=== PATIENT | male | born 1935 | race Caucasian/White ===

== ENCOUNTER → 2018-11-26 | Outpatient (CLI) | payer MEDICARE, OTHER ==
[2018-11-26 07:42] LABS: POTASSIUM 4.4 mmol/L (3.5-5.1)
== END ==
LOC: M.LAB 05:00
PROVIDERS: Student in an Organized Health Care Education/Training Program
DX: E11.9 Type 2 diabetes mellitus without complications (principal); E87.6 Hypokalemia

== ENCOUNTER 2020-10-29 12:35 | Observation (INO) | payer MEDICARE, OTHER ==
[~2020-10-29] VITALS: Ht 177.8 cm; Wt 98.2 kg
[2020-10-29 12:44] VITALS: BP 210/90
[2020-10-29 13:15] LABS: ABSOLUTE LYMPHOCYTES 1.7 thou/uL (0.8-5.3); ABSOLUTE MONOCYTES 0.6 thou/uL (0.0-1.2); ABSOLUTE NEUTROPHILS 6.8 thou/uL (1.6-8.1); BASOPHILS 0.3 %; EOSINOPHILS 0.2 %; HEMATOCRIT 43.4 % (42.0-52.0); HEMOGLOBIN 15.1 gm/dL (14.0-18.0); LYMPHOCYTES 18.4 %; MCH 32.1 pg (26.0-34.0); MCHC 34.9 g/dL (28.0-37.0); MCV 92.2 fL (80.0-100.0); MONOCYTES 6.6 %; MPV 6.7 fl. (7.2-11.1); NUCLEATED RBCS 0 /100WBC; PLATELET COUNT* 311 thou/uL (150-400); POLYS 74.5 %; RBC 4.71 mil/uL (4.50-6.00); RDW-CV 12.9 % (10.5-14.5); WBC 9.1 thou/uL (4.0-11.0)
[2020-10-29 13:27] LABS: CALCIUM 9.5 mg/dL (8.5-10.1); CREATININE 0.8 mg/dL (0.6-1.3); POTASSIUM 3.6 mmol/L (3.5-5.1)
[2020-10-29 13:31] LABS: ALBUMIN 4.2 g/dL (3.4-5.0); TOTAL BILIRUBIN 0.7 mg/dL (<0.1-1.0); TOTAL PROTEIN 7.5 g/dL (6.4-8.2)
[2020-10-29] MEDS ORDERED: GABAPENTIN100 MG PO (13:45)
[2020-10-29] MEDS ORDERED: METFORMIN HCL500 M3 PO (13:45)
[2020-10-29] MEDS ORDERED: FENOFIBRATE150 MG PO (13:45)
[2020-10-29] MEDS ORDERED: TOPROL XL25 MG PO (13:46)
--- NOTE | 2020-10-29 16:55 | EKG ---
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: UMANG : 1935 Requested By: Ernesto Lazo Order Number: [id number] MD: Parvez Echols Measurements Intervals [place] Rate: 57 P: 16 MT: 138 QRS: 35 QRSD: 100 T: 42 QT: 413 QTc: 402 Interpretive Statements Sinus rhythm Probable left ventricular hypertrophy No previous ECG available for comparison Electronically Signed On 10-29-2020 16:55:36 CDT by Parvez Echols [email or web address] <ELECTRONICALLY SIGNED> By: Parvez Echols MD, [facility] 10/29/20 1655 1249 1249 Parvez Echols MD, [facility] /EPI
[2020-10-29 18:30] VITALS: BP 162/76
[2020-10-29 19:43] VITALS: BP 146/59
[2020-10-29 20:00] VITALS: BP 118/53
[2020-10-29] MEDS ORDERED: LISINOPRIL20 MG PO (22:17)
[2020-10-29 23:58] VITALS: BP 109/52
[2020-10-30 04:02] VITALS: BP 108/42
[2020-10-30 04:42] LABS: HEMATOCRIT 41.8 % (42.0-52.0); HEMOGLOBIN 14.5 gm/dL (14.0-18.0); MCH 32.1 pg (26.0-34.0); MCHC 34.6 g/dL (28.0-37.0); MCV 92.6 fL (80.0-100.0); MPV 6.9 fl. (7.2-11.1); RBC 4.51 mil/uL (4.50-6.00); RDW-CV 12.9 % (10.5-14.5); WBC 9.5 thou/uL (4.0-11.0)
[2020-10-30 05:01] LABS: CALCIUM 9.5 mg/dL (8.5-10.1); POTASSIUM 4.3 mmol/L (3.5-5.1)
[2020-10-30 09:10] VITALS: BP 133/58
[2020-10-30 11:57] VITALS: BP 130/54
[2020-10-30 14:19] VITALS: BP 130/54
[2020-10-30 15:04] VITALS: BP 130/54
--- NOTE | 2020-10-30 15:05 | NUR ---
PATIENT HAS REMAINED A&OX4, PLEASANT AND COOPERATIVE WITH CARES THIS SHIFT. PATIENT IS TO FOLLOW UP WITH CARDIOLOGY OUTPATIENT. HAS DENIED ANY CHEST PAIN AND BP BETTER THAN AT ADMISSION. PATIENT GIVEN DISCHARGE INSTRUCTIONS, NO CHANGES TO HOME MEDICATION. IV REMOVED. PATIENT DENIES PAIN/QUESTIONS/CONCERNS PRIOR TO DISCHARGE. PATIENT LEFT UNIT VIA W/C WITH PERSONAL BELONGINGS, ACCOMPANIED BY NURSING STAFF AND SON AT APPROX. 1455.
[2020-10-31 02:05] LABS: GLYCOHEMOGLOBIN (HGB A1C) 6.6 % (4.8-5.6)
== END 2020-10-30 14:55 | disposition home or self-care (01) ==
LOC: M.ERS 12:35 → M.TBA-ER 14:36 → M.2W 19:43
PROVIDERS: Emergency Medicine; ADMIT Internal Medicine; ATTEND Internal Medicine
DX: I16.0 Hypertensive urgency (principal); R07.89 Other chest pain; Z20.822 Contact with and (suspected) exposure to COVID-19; E11.40 Type 2 diabetes mellitus with diabetic neuropathy, unspecified; R42 Dizziness and giddiness; I10 Essential (primary) hypertension; E66.9 Obesity, unspecified; Z68.31 Body mass index [BMI] 31.0-31.9, adult

== ENCOUNTER 2020-11-16 21:41 | Observation (INO) | payer MEDICARE, OTHER ==
[~2020-11-16] VITALS: Ht 175.3 cm; Wt 98.4 kg
--- NOTE | ~2020-11-16 | EMS ---
[address] [address] EMS Patient Care Report Name: LILI WATSON Room: [address] Tung Freed#: [id number] Admission: 11/17/20 Attend Phys: Carlee Aguirre Discharge: Date of : 39 Report #: [id number] THIS REPORT FOR: //name// Report Transmitted: 11/17/2020 01:02 EMS Care Summary KENDELL JEAN Incident [id number] @ 11/16/2020 21:05 Incident Location [address] [place] [address] Patient Lili Watson Male, 85 Years 1935 Patient Address [address] [place] [address] Patient History Hypertension (HTN),Hyperlipidemia,Endocrine Condition - Other,Polyneuropathy, unspecified, Patient Allergies No known allergies, Patient Medications Gabapentin, Hydrochlorothiazide / Lisinopril, Metoprolol, Metformin, Fenofibrate, Chief Complaint Chest Pain Disposition Transported No Lights/[place] Dispatch Reason Chest Pain (Non-Traumatic) Transported To [facility] Narrative [facility] dispatched for chest pain. Arrived on scene of a single-family home. Patient is found seated in a recliner in the livingroom with IFD and family at [address] [address] EMS Patient Care Report Name: LILI WATSON Room: [address] Aleida.#: [id number] Admission: 11/17/20 Attend Phys: Carlee Aguirre Discharge: Date of : 39 Report #: [id number] his side. Patient is alert, oriented with no immediate life-threats noted. Patient states he had sudden onset of chest pain with high blood pressure. It does not radiate. The pain is a pressure substernal and constant. Patient denies shortness of breath and nausea. Patient does admit to dizziness. Patient states he was sitting in his chair watching the game. patient reports that he was seen two weeks ago for the same complaint. Pain scale as documented. 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 12-lead obtained at patient side. Patient did report resolution of his pain during assessment. Patient agrees to be transported to [place] for further evaluation. Patient was able to ambulate to [facility] without incident. Patient sat in a position of comfort, was secured via safety straps plus side rails, taken to ambulance and loaded without incident. Vitals, BGL and repeat 12-lead obtained. IV access obtained. Patient had no further complaints during transport and states that he does feel better and that he was a little anxious. Patient is noted to be hypertensive. He states he has been taking his medications as prescribed. Patient states again that he feels better and that the pain is minimal. Patient remained monitored throughout transport with supportive care provided. At destination, signature obtained and monitoring removed. Patient was unloaded and taken to room 17. Patient was lowered, unsecured and able to self-transfer from cot to facility bed without incident. Report to RN and physician. Signature obtained from RN. Care transferred and call cleared. Initial Vitals @21:09Pain: 08/25, @21:38Pain: 08/25, @21:19SpO2: 96, @21:24SpO2: 94, @21:32SpO2: 96, @21:35SpO2: 95, @21:11 @21:16 @21:20P: 62,R: 16,BP: 170/84, @21:35P: 62,R: 14,BP: 207/89, @21:38P: 60,R: 16,BP: 202/74, @21:20GCS: 15, @21:35GCS: 15, @21:38GCS: 15, @21:09 Assessments @21:09MENTAL:SKIN:HEENT:LUNG SOUNDS:ABDOMEN:PELVIS//GI:EXTREMITIES:PULSE:NEURO: Impression [place] [address] EMS Patient Care Report Name: LILI WATSON Room: [address] M.R.#: [id number] Admission: 11/17/20 Attend Phys: Carlee Aguirre Discharge: Date of : 39 Report #: [id number] Procedures @21:24 cc () Site: Other Peripheral (Not Listed)Response: UnchangedSucceeded@21:1112-Lead ECGResponse: UnchangedSucceeded@21:1612-Lead ECGResponse: UnchangedSucceeded Timeline 20:39,Call Received 21:04,Dispatch Notified 21:04,Psap Call 21:05,Dispatched 21:05,En Route 21:08,On Scene 21:09,At Patient 21:09,BP: / M,PULSE: ,RR: R,SPO2: Ox,ETCO2: ,BG: ,PAIN: 3,GCS: , 21:09,BP: / M,PULSE: ,RR: R,SPO2: Ox,ETCO2: ,BG: ,PAIN: ,GCS: , 21:11,12-Lead ECG,Response: UnchangedSucceeded, 21:11,BP: / M,PULSE: ,RR: R,SPO2: Ox,ETCO2: ,BG: ,PAIN: ,GCS: , 21:16,12-Lead ECG,Response: UnchangedSucceeded, 21:16,BP: / M,PULSE: ,RR: R,SPO2: Ox,ETCO2: ,BG: ,PAIN: ,GCS: , 21:19,BP: / M,PULSE: ,RR: R,SPO2: 96 Ox,ETCO2: ,BG: ,PAIN: ,GCS: , 21:19,Depart Scene 21:20,BP: 170/84 M,PULSE: 62,RR: 16 R,SPO2: Ox,ETCO2: ,BG: ,PAIN: ,GCS: , 21:20,BP: / M,PULSE: ,RR: R,SPO2: Ox,ETCO2: ,BG: ,PAIN: ,GCS: 15, 21:24, cc Site: Other Peripheral (Not Listed),Response: UnchangedSucceeded, 21:24,BP: / M,PULSE: ,RR: R,SPO2: 94 Ox,ETCO2: ,BG: ,PAIN: ,GCS: , 21:32,BP: / M,PULSE: ,RR: R,SPO2: 96 Ox,ETCO2: ,BG: ,PAIN: ,GCS: , 21:35,BP: / M,PULSE: ,RR: R,SPO2: 95 Ox,ETCO2: ,BG: ,PAIN: ,GCS: , 21:35,BP: 207/89 M,PULSE: 62,RR: 14 R,SPO2: Ox,ETCO2: ,BG: ,PAIN: ,GCS: , 21:35,BP: / M,PULSE: ,RR: R,SPO2: Ox,ETCO2: ,BG: ,PAIN: ,GCS: 15, 21:38,BP: / M,PULSE: ,RR: R,SPO2: Ox,ETCO2: ,BG: ,PAIN: 3,GCS: , 21:38,BP: 202/74 M,PULSE: 60,RR: 16 R,SPO2: Ox,ETCO2: ,BG: ,PAIN: ,GCS: , 21:38,BP: / M,PULSE: ,RR: R,SPO2: Ox,ETCO2: ,BG: ,PAIN: ,GCS: 15, 21:39,At Destination 21:55,Call Closed Disclaimer v1.1 Copyright 2020 [employer] This EMS Care Summary contains data elements from the applicable legal record (which may be displayed differently). It is designed to provide pertinent information for the following purposes: continuity of care, clinical quality, and state data reporting. The complete legal record is available to ED staff and administrators of the receiving hospital in [employer]'s Patient Tracker. All data is provided "as is."
[~2020-11-16 21:41] MED LIST: FENOFIBRATE150 MG PO; GABAPENTIN100 MG PO; LISINOPRIL20 MG PO; METFORMIN HCL500 M3 PO; TOPROL XL25 MG PO
[2020-11-16 21:44] VITALS: BP 139/90
--- NOTE | 2020-11-16 22:15 | NUR ---
PT STATES PAIN STILL A [address] DR GONZALEZ NOTIFIED AND NEW ORDERS RECIEVED
[2020-11-16 22:21] LABS: ABSOLUTE EOSINOPHILS 0.1 thou/uL (0.0-0.7); ABSOLUTE LYMPHOCYTES 1.5 thou/uL (0.8-5.3); ABSOLUTE MONOCYTES 0.4 thou/uL (0.0-1.2); ABSOLUTE NEUTROPHILS 3.6 thou/uL (1.6-8.1); BASOPHILS 0.4 %; EOSINOPHILS 1.9 %; HEMATOCRIT 38.3 % (42.0-52.0); HEMOGLOBIN 13.3 gm/dL (14.0-18.0); LYMPHOCYTES 26.1 %; MCH 31.8 pg (26.0-34.0); MCHC 34.8 g/dL (28.0-37.0); MCV 91.5 fL (80.0-100.0); MONOCYTES 7.7 %; MPV 6.5 fl. (7.2-11.1); NUCLEATED RBCS 0 /100WBC; PLATELET COUNT* 273 thou/uL (150-400); POLYS 63.9 %; RBC 4.19 mil/uL (4.50-6.00); RDW-CV 12.9 % (10.5-14.5); WBC 5.6 thou/uL (4.0-11.0)
[2020-11-16 22:36] LABS: CALCIUM 9.1 mg/dL (8.5-10.1); POTASSIUM 3.8 mmol/L (3.5-5.1)
[2020-11-16 22:47] LABS: ALBUMIN 3.8 g/dL (3.4-5.0); TOTAL BILIRUBIN 0.2 mg/dL (<0.1-1.0); TOTAL PROTEIN 6.8 g/dL (6.4-8.2)
[2020-11-17 00:23] LABS: URINE BILIRUBIN NEGATIVE (Negative); URINE BLOOD NEGATIVE (Negative); URINE CLARITY CLEAR; URINE COLOR YELLOW; URINE GLUCOSE-RANDOM TRACE (Negative); URINE KETONES NEGATIVE (Negative); URINE LEUKOCYTES-REFLEX NEGATIVE (Negative); URINE NITRITE-REFLEX NEGATIVE (Negative); URINE PROTEIN NEGATIVE (Negative); URINE SPECIFIC GRAVITY 1.015 (1.005-1.030); URINE UROBILINOGEN 0.2 E.U./dl (0.2-1.0)
[2020-11-17 00:55] VITALS: BP 180/66
[2020-11-17 02:33] VITALS: BP 117/66
--- NOTE | 2020-11-17 03:01 | NUR ---
PT ADMIT TO ROOM 231 AT 0105. ALERT ORIENTED UP AD LAURA. STATES CHEST PRESSUE 06/27. NPO. ON RA. 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
[2020-11-17 04:00] VITALS: BP 147/62
[2020-11-17 08:00] VITALS: BP 158/69
--- NOTE | 2020-11-17 10:33 | EKG ---
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
[2020-11-17 12:00] VITALS: BP 149/72
--- NOTE | 2020-11-17 16:00 | CON ---
[address] [address] CONSULTATION Name: LILI WATSON Room: [address] Tung Freed#: [id number] Admission: 11/17/20 Attend Phys: Carlee Aguirre Discharge: Date of : 39 Report #: [id number] THIS REPORT FOR: cc: FAM - No family physician/PCP FAM - No family physician/PCP Kevin Rangel MD [facility] ~ DOC #: [id number] Kevin Rangel MD [facility] DATE OF CONSULTATION: 11/17/2020 CARDIOLOGY CONSULTATION HISTORY OF PRESENT ILLNESS: The patient is an 85-year-old single white male who I was asked to see in the hospital today after complaining of chest pain. The patient has no previous history of heart disease. He has had no previous cardiac evaluation. He has a long history of diabetes and hyperlipidemia. He has been on lisinopril for years, apparently for renal protection because of his diabetes. 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 He notes, however, about a month ago, his blood pressure elevated and he was started on Toprol in addition to the lisinopril. Apparently, 2 weeks ago, he had an episode of chest pain, came here to [place] and admitted. He was found to have elevated blood pressure. He was evaluated and sent home. He notes he was at home yesterday watching TV when he felt a heaviness in chest, lasted about 30 minutes and then resolved. There is no radiation of the pain. No associated shortness of breath, diaphoresis, nausea. He denies any recent trauma to his chest or rash. He has had a cough, but the pain was not related to coughing. He had some belching, but the pain was not relieved with the belch. He was brought to the hospital last night and admitted for further evaluation and treatment. He denies exertional dyspnea, palpitations, syncope, peripheral edema. PAST MEDICAL HISTORY: He has had hernia repair. He has a history of hypertension, diabetes, hyperlipidemia. CURRENT MEDICATIONS: Include metoprolol, lisinopril, metformin, fenofibrate. He was on Lipitor in the past, but no longer takes it. FAMILY HISTORY: His mom had valvular heart disease. SOCIAL HISTORY: He is single, lives with a female friend in [place]. 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 Quit smoking years ago, rarely drinks alcohol. REVIEW OF SYSTEMS: No history of stroke. He does not snore at night. No history of asthma, liver disease, kidney disease, cancer, psychiatric illness, chronic skin condition. [place] [address] CONSULTATION Name: LILI WATSON Room: [address] Tung Freed#: [id number] Admission: 11/17/20 Attend Phys: Carlee Aguirre Discharge: Date of : 39 Report #: [id number] PHYSICAL EXAMINATION: GENERAL: Revealed an elderly male, lying in bed. He appeared in no distress. VITAL SIGNS: Last night, he had a blood pressure of 180/60, pulse is 60, he is afebrile. HEENT: He was anicteric. Conjunctivae pink. Mucosa is moist. NECK: Veins are not distended. No carotid bruits. Neck is supple. CHEST: Clear to auscultation. HEART: Regular rate and rhythm. ABDOMEN: Obese. EXTREMITIES: He had no edema. Posterior tibial pulse 2+ bilaterally. SKIN: Cool and dry. NEUROLOGIC: Nonfocal. LYMPHATIC: No adenopathy. MUSCULOSKELETAL: No effusion. IMAGING: His ECG on admission showed a sinus rhythm with no significant ST or T-wave changes. His workup in the Emergency Room, he had a portable chest x-ray that showed normal heart size, clear lung darling. LABORATORY DATA: Sodium 139, creatinine 1.0. Troponins were all less than 0.06. BNP 252. White blood cell count 5.6, hematocrit 38.3. His COVID antigen stat test was negative. Urinalysis negative for protein. IMPRESSION AND RECOMMENDATIONS: 1. Chest heaviness. Atypical for angina. There was acute myocardial infarction. At this time, I think it is reasonable to discharge the patient and consider outpatient pharmacologic stress test to rule out ischemic heart disease. In the meantime, I would recommend he take an aspirin a day. 2. Hypertension. The patient has been on a beta yoshi and DEA inhibitor. I would recommend increasing lisinopril to 20 mg twice a day, but I would not increase metoprolol because of bradycardia. I would consider adding a thiazide diuretic. 3. Hyperlipidemia. I would aim for an LDL of less than 100. The patient currently is on fenofibrate for high triglyceride. He no longer is taking Lipitor. 4. Obesity. Kevin Rangel MD [facility] [place] [address] CONSULTATION Name: LILI WATSON Room: [address] Tung Freed#: [id number] Admission: 11/17/20 Attend Phys: Carlee Aguirre Discharge: Date of : 39 Report #: [id number] <ELECTRONICALLY SIGNED> By: Kevin Rangel MD, FACC 11/17/20 1600 1019 [id number] Rangel MD, FACC /nt
[2020-11-17 20:00] VITALS: BP 184/76
[2020-11-18] VITALS: BP 147/40
[2020-11-18 04:00] VITALS: BP 153/65
[2020-11-18 04:15] LABS: HEMATOCRIT 38.5 % (42.0-52.0); HEMOGLOBIN 13.5 gm/dL (14.0-18.0); MCH 31.9 pg (26.0-34.0); MCHC 35.1 g/dL (28.0-37.0); MCV 90.8 fL (80.0-100.0); MPV 6.9 fl. (7.2-11.1); RBC 4.24 mil/uL (4.50-6.00); RDW-CV 12.9 % (10.5-14.5); WBC 6.7 thou/uL (4.0-11.0)
[2020-11-18 04:26] LABS: ANION GAP 5 mmol/L (7-16); BUN 16 mg/dL (7-18); CALCIUM 8.5 mg/dL (8.5-10.1); CHLORIDE 104 mmol/L (98-107); CHOLESTEROL 157 mg/dL (<200); CO2 31 mmol/L (21-32); CREATININE 0.8 mg/dL (0.6-1.3); GLUCOSE 131 mg/dL (70-99); HDL CHOLESTEROL 36 mg/dL (>40); LDL CHOLESTEROL 105 mg/dL (<100); POTASSIUM 3.6 mmol/L (3.5-5.1); SODIUM 140 mmol/L (136-145); TC:HDL 4.4 Ratio (Not establshd); TRIGLYCERIDE 81 mg/dL (<150); VLDL 16 mg/dL (<40)
[2020-11-18 04:36] LABS: SERUM ASSESSMENT Clear
--- NOTE | 2020-11-18 06:29 | NUR ---
ASSUMED PT CARE AT APPROX 1915. PT A/OX4. VSS. PT IS ON RA. PT IS TRACING SR TO SB DURING THE NIGHT. PT IS NPO, OK FOR H2O, NO CAFFEINE, AND NO BETA BLOCKERS FOR STRESS TEST TODAY. PT IS UP AD LAURA. PT RESTING IN BED. NO C/O VOICED. FALL PRECAUTIONS IN PLACE FOR SAFETY. HOURLY ROUNDS COMPLETE CHARTED. CALL LIGHT WITHIN REACH. WILL CONT. TO MONITOR.
[2020-11-18 09:13] VITALS: BP 158/68
[2020-11-18] MEDS ORDERED: PROTONIX40 M2 PO (09:13)
[2020-11-18 12:00] VITALS: BP 141/54
[2020-11-18 13:40] VITALS: BP 158/68
--- NOTE | 2020-11-18 13:53 | NUR ---
PT ADMITTED FOR CHEST PAIN. PT HAD STRESS TEST PERFORM TODAY. PT LIVES HOME WITH S/O. PT IS ACTIVE AND INDEPENDENT W/CARES. PT DOES NOT USE DMES. PT HAS NO HX WITH HH. S/O, MICHAEL STATED SHE WILL PROVIDED TRANSPORTATION AT D/C. NO CM NEEDS AT THIS TIME.
--- NOTE | 2020-11-18 15:42 | CARDNUC ---
[place] [address] CARDIAC NUCLEAR IMAGING REPORT Name: LILI WATSON Room: [address]#: [id number] Admission: 11/17/20 Attend Phys: Ady Goins Discharge: Date of : 39 Date of Service: 11/18/20 1542 Report #: [id number] THIS REPORT FOR: cc: FAM - No family physician/PCP FAM - No family physician/PCP Raad Payan MD [facility] ~ APPROVED REPORT Study performed: 11/18/2020 10:33:16 Exam: Nuclear Stress Test Indication: Chest pain Patient Location: In-Patient Room #: 231 Stress Tech: Cassandra Person Stress Nurse: Renata Simental RN Ht: 5 ft 9 in Wt: 216 lbs BSA: 2.13 m2 BMI: 31.89 Medical History Medical History: HTN, Hyperlipidemia, Diabetic Insulin Medications: liainopril, asa 81, metoprolol, fenofibrate, hctz Allergies: No known drug allergies Cardiac Risk Factors: Age, HTN, Hyperlipidemia, Diabetes (insulin) Exercise History: Indeterminate Meds Held (24 hrs): metoprolol Stress Test Details HR Max Heart Rate (APMHR): 137 bpm Target HR (85% APMHR): 116 bpm BP ECG Resting ECG: Sinus Rhythm Stress ECG: Sinus Rhythm ST Change: None Arrhythmia: None Recovery ECG: Sinus Rhythm Recovery ST Change: None Recovery Arrhythmia: [place] [address] CARDIAC NUCLEAR IMAGING REPORT Name: LILI WATSON Room: [address] M.Lindsay#: [id number] Admission: 11/17/20 Attend Phys: Ady Goins Discharge: Date of : 39 Date of Service: 11/18/20 1542 Report #: [id number] Clinical The patient tolerated Lexiscan infusion without significant cardiac symptoms. Stress ECG Conclusion The baseline twelve-lead EKG shows sinus rhythm without significant ST segment abnormality. EKGs obtained during and post Lexiscan infusion show sinus rhythm with no significant ST segment changes when compared to baseline. There were no stress-induced arrhythmias. NM EXAM: Myocardial Perfusion REST/STRESS Imaging Protocol: Rest Tc-99m/Stress Tc-99m 2 days Resting Data Rest SPECT myocardial perfusion imaging was performed in supine position 30 minutes following the intravenous injection of 8.6 mCi of Tc-99m Sestamibi. Time of rest injection: 11:30 Date: 11/17/2020 The images were gated to evaluate regional wall motion and calculate left ventricular ejection fraction. Administration Route: IV Administration Site: Left AC Pharmacologic Stress Pharmacologic stress test was performed by injecting Regadenoson 0.4 mg IV push followed by the intravenous injection of 29.6 mCi of Tc-99m Sestamibi. Time of stress injection: 11:00 Date: 11/18/2020 Administration Route: IV Administration Site: Left AC Heart Rate at time of stress injection: 86 bpm. Gated Stress SPECT was performed 40 minutes after stress injection. The images were gated to evaluate regional wall motion and calculate left ventricular ejection fraction. Prone imaging was performed. Study Quality Study: Good Artifact: Mild Diaphragmatic artifact Study Data At rest, the left ventricular ejection fraction was 60%.. Post stress, the left ventricular ejection was 60%.. [place] [address] CARDIAC NUCLEAR IMAGING REPORT Name: LILI WATSON Room: [address]#: [id number] Admission: 11/17/20 Attend Phys: Ady Goins Discharge: Date of : 39 Date of Service: 11/18/20 1542 Report #: [id number] TID = 0.86. Perfusion Perfusion images obtained at rest and post Lexiscan stress show a moderate sized mild to moderate intensity defect involving the basal to distal inferior wall that resolves for the most part with post-rest prone imaging suggesting diaphragmatic attenuation artifact. No other significant fixed or reversible defects were identified. Wall Motion Normal left ventricular wall motion. Nuclear Conclusion ECG Findings: negative for ischemia Clinical Findings: negative for ischemia Nuclear Findings: negative for ischemia Exercise Capacity: not assessed Left Ventricular Function: normal Risk Study: low Perfusion images show no defect to suggest infarct or ischemia. Left ventricular systolic function appears normal on gated studies. This is a low risk study. <Conclusion> The baseline twelve-lead EKG shows sinus rhythm without significant ST segment abnormality. EKGs obtained during and post Lexiscan infusion show sinus rhythm with no significant ST segment changes when compared to baseline. There were no stress-induced arrhythmias. <ELECTRONICALLY SIGNED> By: Raad Payan MD, [facility] 11/18/20 1542 1542 1542 Raad Payan MD, FAC /INF
--- NOTE | 2020-11-18 15:52 | NUR ---
PER CARDIOLOGY, DR PARKER STATES NEGATIVE STRESS TEST AND PT CLEAR TO DISCHARGE HOME.
--- NOTE | 2020-11-18 16:45 | NUR ---
PT DCD AFTER STRESS TEST.DC INSTRUCTIONS REVIEWED WITH PT AND PT REPORTS UNDERSTANDING WITHOUT FURTHER QUESTIONS.PT TAKEN BY WC TO FAMILY VEHICLE ACCOMPANIED BY NURSING STAFF WITH ALL OF BELONGINGS.
== END 2020-11-18 16:45 | disposition home or self-care (01) ==
LOC: M.ERS 21:41 → M.TBA-ER 11-17 00:11 → M.2W 11-17 00:54
PROVIDERS: Family Medicine; Personal Emergency Response Attendant; ADMIT Internal Medicine; ATTEND Internal Medicine
DX: R07.89 Other chest pain (principal); Z20.822 Contact with and (suspected) exposure to COVID-19; R06.02 Shortness of breath; R42 Dizziness and giddiness; E78.5 Hyperlipidemia, unspecified; I10 Essential (primary) hypertension; E11.9 Type 2 diabetes mellitus without complications; Z79.899 Other long term (current) drug therapy